=== PATIENT | male | born 1965 | race Caucasian/White ===

== ENCOUNTER 2022-07-12 15:30 | Emergency (ER) | payer SELFPAY ==
[2022-07-12] MEDS ORDERED: Cephalexin 500 MG CAP ONE (19:45)
[2022-07-12] MEDS ORDERED: Bacitracin 1 PK ONE (19:45)
[2022-07-12] MEDS ORDERED: Boostrix 0.5 ML (Tdap) VIAL (>/=7 yrs of age) ONE (19:45)
== END 2022-07-12 20:08 | disposition home or self-care (01) ==
LOC: MADERS 15:30
DX: S61.211A Laceration without foreign body of left index finger without damage to nail, initial encounter (principal); S60.122A Contusion of left index finger with damage to nail, initial encounter; I10 Essential (primary) hypertension; F17.290 Nicotine dependence, other tobacco product, uncomplicated; Z23 Encounter for immunization; W23.0XXA Caught, crushed, jammed, or pinched between moving objects, initial encounter
CPT/HCPCS: 11740; 12001; 90471; 90715